=== PATIENT | female | born 1970 | race Caucasian/White ===

== ENCOUNTER → 2019-12-10 | Day surgery (SDC) | payer OTHER ==
[2019-12-03 15:06] LABS: BASOPHILS # (AUTO) 0.1 (0.0-0.1); BASOPHILS % 0.5 % (0.0-1.0); EOSINOPHILS # (AUTO) 0.1 (0.0-0.4); EOSINOPHILS % 1.2 % (0.0-6.0); HEMATOCRIT 42.3 % (34.2-44.1); HEMOGLOBIN 13.4 g/dL (12.0-16.0); LYMPHOCYTES # (AUTO) 2.8 (1.0-3.2); LYMPHOCYTES % 27.4 % (18.0-39.1); MEAN CORPUSCULAR HGB CONC 31.7 g/dL (31-35); MEAN CORPUSCULAR VOLUME 91.6 fL (81-99); MONOCYTES # (AUTO) 0.5 (0.2-0.8); MONOCYTES % 5.2 % (4.4-11.3); NEUTROPHILS # (AUTO) 6.7 (2.1-6.9); NEUTROPHILS % 65.4 % (38.7-80.0); PLATELET COUNT 387 x10e3/uL (140-360); RED BLOOD COUNT 4.62 x10e6/uL (3.6-5.1); RED CELL DISTRIBUTION WIDTH 12.3 % (11.7-14.4)
[2019-12-03 15:10] LABS: BILIRUBIN,URINE NEGATIVE (NEGATIVE); CLARITY,URINE SL CLOUDY (CLEAR); COLOR,URINE YELLOW (YELLOW); KETONES,URINE NEGATIVE (NEGATIVE); LEUKOCYTE ESTERASE ,URINE NEGATIVE (NEGATIVE); NITRITE,URINE NEGATIVE (NEGATIVE); PROTEIN,URINE DIPSTICK NEGATIVE (NEGATIVE); URINE UROBILINOGEN 0.2 mg/dL (0.2 - 1)
[2019-12-03 15:15] LABS: INR 0.89; PROTHROMBIN TIME 12.6 seconds (11.9-14.5)
[2019-12-03 15:16] LABS: PARTIAL THROMBOPLASTIN TIME 33.4 seconds (23.8-35.5)
[2019-12-03 15:21] LABS: ANION GAP 17.5 mmol/L (8-16); BLOOD UREA NITROGEN 15 mg/dL (7-26); BUN/CREATININE RATIO 20 (6-25); CALCIUM 10.3 mg/dL (8.4-10.2); CARBON DIOXIDE 19 mmol/L (22-29); CHLORIDE 108 mmol/L (98-107); CREATININE, SERUM 0.74 mg/dL (0.57-1.11); EST GLOMERULAR FILTRATION RATE > 60 ML/MIN (60-); GLUCOSE 81 mg/dL (74-118); POTASSIUM 3.5 mmol/L (3.5-5.1); SODIUM 141 mmol/L (136-145)
--- NOTE | 2019-12-04 11:12 | Diagnostic Imaging Report ---
EXAM: CHEST 2 VIEWS DATE: 12/04/2019 10:09 AM INDICATION: Preoperative evaluation for foot surgery COMPARISON: 05/15/2019 FINDINGS: The trachea is midline. The lungs are symmetrically expanded without evidence for large focal consolidation, pneumothorax, or significant pleural effusion. The cardiomediastinal silhouette and pulmonary vasculature are within normal limits. No acute osseous abnormality is identified. The surrounding soft tissues are unremarkable. IMPRESSION: No acute cardiopulmonary process identified. Signed by: Dr. Evangelist Hurst MD on 12/04/2019 11:09 AM
[~2019-12-10] MED LIST: ACETAMINOPHEN 1000 MG/100 ML 100 ML IV ONE; ACETAMINOPHEN 1000 MG/100 ML IV ONE; BACITRACIN 50,000 UNIT VIAL ONE; BUPIVACAINE HCL 0.5% INJ 30 ML VIAL INJ ONE; BUPIVACAINE LIPOSOME/PF 266 MG/20 ML IJ ONE; CEFAZOLIN SOD 1 GM/NS 50ML 100 ML IV ONE; DEXAMETHASONE SOD PHOS INJ 4 MG/ML VIAL ONE; FENTANYL CITRATE/PF 100MCG/2 ML INJ ONE; FYCOMPA PO; GLYCOPYRROLATE INJ 0.2 MG/ML VIAL ONE; HYDROMORPHONE 1MG/1ML INJ ONE; LIDOCAINE HCL 1% LOCAL INJ 20 ML VIAL ONE; LIDOCAINE HCL 2% JELLY 5 ML TUBE ONE; LIDOCAINE HCL 2% LOCAL INJ 5 ML SDV VIAL INJ ONE; LORAZEPAM1 MG PO; MUPIROCIN 2% OINT 22 GM TUBE ONE; NEOSTIGMINE 1 MG/ML 10ML VIAL ONE; ONDANSETRON HCL INJ 2MG/ML 2ML 2 MG/ML VIAL ONE; PRAVASTATIN SOD40 MG PO; PROPOFOL IV EMULSION 10 MG/ML 20 ML VIAL ONE; ROCURONIUM BROMIDE 10 MG/ML 5ML VIAL ONE; SERTRALINE HCL100 MG PO; SEVOFLURANE INHAL SOLN 250 ML PEN BTL ONE; TOPAMAX25 MG PO; TROKENDI PO
--- OUTSIDE RECORDS SUMMARY | 2019-12-10 11:47 | XMS REPORT | Summary of Care ---
Author Author [facility] - Health Organization [facility] - Health Address Unknown Phone Unavailable Care Team Providers Care Nonprofit Financial Controller Name Role Phone Candice Dunlap MD PCP Encounter Details Care Team Description Date Type Department Doctor Unassigned, [place] [address] [place] [id number] 11/14/2019 Orders Only [facility] [address] [place] [address] Allergies Comments Active Allergy Reactions Severity Noted Date Hydrocodone-Acetaminophen Hives 07/29/2019 documented as of this encounter (statuses as of 11/14/2019) Medications End Date Status Medication Sig Dispensed Refills Start Date Active SERTraline 100 mg tablet Take 100 mg 0 by mouth 9 daily. Active TROKENDI XR 100 mg Cp24 TK ONE C PO 3 QHS 9 Active LORazepam 1 mg tablet TK 1 T PO QD 0 9 Active Diclofenac Sodium Apply 1 Tube 2 (VOLTAREN) 1 % pea-sized 9 gelIndications: Referred amount of gel otalgia of both ears, TMJ to jaw joint crepitus area daily for pain. Active traMADol 50 mg tablet TAKE 1 TABLET 0 BY MOUTH 9 THREE TIMES A DAY NEEDED FOR PAIN documented as of this encounter (statuses as of 11/14/2019) Active Problems No known active problemsdocumented as of this encounter (statuses as of 11/14/2019) Immunizations Name Administration Dates Next Due Influenza Virus Vaccine 10/29/2019 Quad .5 mL IM 6+ MO documented as of this encounter Social History Date Tobacco Use Types Packs/Day Years Used Never Smoker Smokeless Tobacco: Never Used Drinks/Week oz/Week Comments Alcohol Use soc Yes Sex Assigned at Date Recorded Not on file Industry Job Start Date Occupation Not on file Not on file Not on file Travel End Travel History Travel Start No recent travel history available. documented as of this encounter Last Filed Vital Signs Not on filedocumented in this encounter Plan of Treatment Care Team Description Date Type Specialty Candice Dunlap MD [address] [place] [address] [place] [phone] [phone] 01/28/2020 Office Visit Family Medicine Health Maintenance Due Date Last Done Comments DTaP,Tdap,and Td Vaccines 1981 (1 - Tdap) PAP SMEAR 1991 Breast Cancer Screening 2010 (MAMMOGRAM) INFLUENZA VACCINE Completed 10/29/2019 PNEUMOCOCCAL 0-64 YEARS Aged Out No longer eligible based COMBINED SERIES on patient's age to complete this topic documented as of this encounter Procedures Comments Procedure Name Priority Date/Time Associated Diagnosis EXTERNAL PROVIDER RECORDS Routine 11/14/2019 12:01 AM PUMP OPERATOR documented in this encounter Results Not on filedocumented in this encounter Insurance Type Payer Benefit Subscriber ID Effective Phone Address Plan / Dates Group Medicaid [employer] [place] [place] xxxxxxxxx 2018-P PLAN - MANAGED MEDICAID STAR PLUS resent documented as of this encounter
--- OUTSIDE RECORDS SUMMARY | 2019-12-10 11:47 | XMS REPORT | Summary of Care ---
Author Author [facility] - Health Organization [facility] - Health Address Unknown Phone Unavailable Care Team Providers Care Finding Fastener Name Role Phone Candice Dunlap MD PCP Encounter Details Care Team Description Date Type Department Heather Baltazar, RN [address] [place] [id number] 11/04/2019 Patient Secure [facility] Pediatric[facility] & [facility] Adult Primary Care- [address] [phone] Allergies Comments Active Allergy Reactions Severity Noted Date Hydrocodone-Acetaminophen Hives 07/29/2019 documented as of this encounter (statuses as of 11/06/2019) Medications End Date Status Medication Sig Dispensed [...] as of this encounter (statuses as of 11/06/2019) Active Problems No known active problemsdocumented as of this encounter (statuses as of 11/06/2019) Immunizations Name Administration Dates Next Due Influenza [...] Date Type Specialty Candice Dunlap MD [address] [address] [place] [phone] 01/28/2020 Office Visit Family Medicine Health Maintenance Due Date Last Done Comments DTaP,Tdap,and Td Vaccines 1981 (1 - Tdap) PAP SMEAR 1991 Breast Cancer Screening 2010 (MAMMOGRAM) INFLUENZA VACCINE Completed 10/29/2019 PNEUMOCOCCAL 0-64 YEARS Aged Out No longer eligible based COMBINED SERIES on patient's age to complete this topic documented as of this encounter Results Not on filedocumented in this encounter Insurance Type Payer Benefit Subscriber ID Effective Phone Address Plan / Dates Group Medicaid [employer] [place] xxxxxxxxx 2018-P PLAN - MANAGED MEDICAID STAR PLUS resent documented as of this encounter
--- OUTSIDE RECORDS SUMMARY | 2019-12-10 11:47 | XMS REPORT | Summary of Care ---
Author Author [facility] - Health Organization [facility] - Health Address Unknown Phone Unavailable Care Team Providers Care Machine Shop Apprentice Name Role Phone Candice Dunlap MD PCP Reason for Visit * Reason Comments Enlarged Tonsils X 1 WEEKS. Sore Throat Encounter Details Care Team Description Date Type Department Aleksandr Padron MD [address] [phone] Pharyngotonsillitis (Primary Dx); Left foot pain 11/27/2019 Office Visit [facility] Pediatrics & Adult Primary Care- [address] [phone] Allergies Comments Active Allergy Reactions Severity Noted Date Hydrocodone-Acetaminophen Hives 07/29/2019 documented as of this encounter (statuses as of 11/27/2019) Medications End Date Status Medication Sig Dispensed [...] THREE TIMES A DAY NEEDED FOR PAIN 12/07/2019 Active amoxicillin 500 mg Take 2 40 capsule 0 capsuleIndications: capsules by 0 Pharyngotonsillitis mouth 2 (two) times daily for 10 days. documented as of this encounter (statuses as of 11/27/2019) Active Problems No known active problemsdocumented as of this encounter (statuses as of 11/27/2019) Immunizations Name Administration Dates Next Due Influenza [...] of this encounter Last Filed Vital Signs Reading Time Taken Comments Vital Sign 128/74 11/27/2019 11:35 AM MEMBERSHIP SECRETARY Blood Pressure 76 11/27/2019 11:35 AM MEMBERSHIP SECRETARY Pulse 36.2 C (97.2 F) 11/27/2019 11:35 AM MEMBERSHIP SECRETARY Temperature 18 11/27/2019 11:35 AM MEMBERSHIP SECRETARY Respiratory Rate - - Oxygen Saturation - - Inhaled Oxygen Concentration 88 kg (194 lb) 11/27/2019 11:35 AM MEMBERSHIP SECRETARY Weight - - Height 31.31 10/29/2019 10:10 AM MEMBERSHIP SECRETARY Body Mass Index documented in this encounter Patient Instructions * Patient Instructions* Aleksandr Padron MD - 11/27/2019 11:30 AM MEMBERSHIP SECRETARY Self-Care for Sore Throats Sore throats happen for many reasons, such as colds, allergies, cigarette smoke, air pollution, and infections caused by viruses or bacteria. In any case, your throat becomes red and sore. Your goal for self-care is to reduce your discomfor t while giving your throat a chance to heal. Moisten and soothe your throat Tips include the following: Try a sip of water first thing after waking up. Keep your throat moist by drinking6 or more glasses of clear liquids every day. Run a cool-air humidifier in your room overnight. Stay away from cigarette smoke. Check the air quality index,if air pollution gives you a sore throat. On high pollution days, try to limit outdoor time. Suck on throat lozenges, cough drops, hard candy, ice chips, or frozen fruit- juice bars. Use the sugar-free versions if your diet or medical condition requir es them. Gargle to ease irritation Gargling every hour or2 can ease irritation. Try gargling with1 of these dione utions: 1/4teaspoon of salt in1/2 cup of warm water An boei-ygw-hdhhgod anesthetic gargle Use medicine for more relief Vvyy-mgy-oxvygas medicine can reduce sore throat symptoms. Ask your pharmacist i f you have questions about which medicine to use. To prevent possible medicine i nteractions, let the pharmacist know what medicines you take. To decrease sympto ms: Ease pain with anesthetic sprays. Aspirin or an aspirin substitute also helps . Remember, never give aspirin to anyone 18 or younger. Don't take aspirin if yo u are alreadytaking blood thinners. For sore throats caused by allergies, try antihistamines to block the allergi c reaction. Unless a sore throat is caused by a bacterial infection, antibiotics wont hel p you. Prevent future sore throats Prevention tips include: Stop smoking or reduce contact with secondhand smoke. Smoke irritates the ten nadira throat lining. Limit contact with pets and with allergy-causing substances, such as pollen a nd mold. Wash your hands often when youre around someone with a sore throat or cold . This will keep viruses or bacteria from spreading. Limit outdoor time when air pollution is bad. Dont strain your vocal cords. When to call your healthcare provider Contact your healthcare provider if you have: Fever of 100.4F (38.0C) or higher, or as directed by your healthcare prov ider White spots on the throat Great Trouble swallowing A skin rash Recent exposure to someone else with strep bacteria Severe hoarseness and swollen glands in the neck or jaw Call 911 Call 911 if any of the following occur: Trouble breathing or catching your breath Drooling and problems swallowing Wheezing Unable to talk Feeling dizzy or faint Feeling of doom [employer] last reviewed this educational content on 05/22/201619990478-0618 [address] [employer]. [address] [place] [address] 583 7. All rights reserved. This information is not intended as a substitute for pro fessional medical care. Always follow your healthcare professional's instruction s. ERSHIP SECRETARY documented in this encounter Progress Notes * Aleksandr Padron MD - 11/27/2019 11:30 AM MEMBERSHIP SECRETARY Cc: Chief Complaint Patient presents with Enlarged Tonsils X 1 WEEKS. Sore Throat Staci Mcknight is a 49 year old female. Sore Throat Location: Posterior Quality: Sore Severity: Severe Onset quality: Gradual Duration: 1 week Timing: Constant Progression: Worsening Chronicity: New Relieved by: OTC medications Worsened by: Swallowing Associated symptoms: adenopathy, chills, fever and trouble swallowing Associated symptoms: no cough, no postnasal drip and no rhinorrhea Fever: Temp source: Subjective Allergies Staci is allergic to lortab [hydrocodone-acetaminophen]. Medications Outpatient Medications Prior to Visit Medication Sig Dispense Refill traMADol 50 mg tablet TAKE 1 TABLET BY MOUTH THREE TIMES A DAY NEEDED FOR PAIN 0 Diclofenac Sodium (VOLTAREN) 1 % gel Apply pea-sized amount of gel to jaw cheo int area daily for pain. 1 Tube 2 LORazepam 1 mg tablet TK 1 T PO QD 0 SERTraline 100 mg tablet Take 100 mg by mouth daily. TROKENDI XR 100 mg Cp24 TK ONE C PO QHS 3 No facility-administered medications prior to visit. Histories Past Medical History: Diagnosis Date Anxiety Hypertension Seizures Dr Tong ([place]) neurologist suspecting panic attacks? Vitamin D deficiency Past Surgical History: Procedure Laterality Date APPENDECTOMY BONE SPUR EXCISION Right 1991 HYSTERECTOMY Social History Socioeconomic History Marital status: Spouse name: Not on file Number of children: Not on file Years of education: Not on file Highest education level: Not on file Occupational History Not on file Social Needs Financial resource strain: Not on file Food insecurity: Worry: Not on file Inability: Not on file Transportation needs: Medical: Not on file Non-medical: Not on file Tobacco Use Smoking status: Never Smoker Smokeless tobacco: Never Used Substance and Sexual Activity Alcohol use: Yes Comment: soc Drug use: Never Sexual activity: Yes Lifestyle Physical activity: Days per week: Not on file Minutes per session: Not on file Stress: Not on file Relationships Social connections: Talks on phone: Not on file Gets together: Not on file Attends protestant service: Not on file Active member of club or organization: Not on file Attends meetings of clubs or organizations: Not on file Relationship status: Not on file Intimate partner violence: Fear of current or ex partner: Not on file Emotionally abused: Not on file Physically abused: Not on file Forced sexual activity: Not on file Other Topics Concern Not on file Social History Narrative Not on file Family History Problem Relation Age of Onset Other - see comments Mother Other - see comments Father Review of Systems Constitutional: Positive for chills and fever. HENT: Positive for trouble swallowing. Negative for postnasal drip and rhinorrhe a. Respiratory: Negative for cough. Hematological: Positive for adenopathy. Review of Systems (bold is positive) CONSTITUTIONAL:- diaphoresis,weight change,change in appetite,fatigue RESPIRATORY:- cough, chest tightness, shortness of breath, wheezing. CVS:- chest pain, dyspnea on exertion, palpitations, leg swelling, Syncope,PND GASTROINTESTINAL:- abdominal distention, abdominal pain, blood in stool, constip ation, nausea ,vomiting. GENITOURINARY:- dysuria, urgency, polyuria, frequency, hematuria, flank pain. MUSCULOSKELETAL:- arthralgias, joint swelling, myalgias, neck stiffness. SKIN:- color change, rash and wound. NEUROLOGIC:- seizures, syncope, weakness, light-headedness,dizziness numbness,h eadaches. PSYCHIATRY:- agitation, confusion,hallucinations,nervous/anxious,depression HEMATOLOGIC: adenopathy, bruise/bleed easily. ENDOCRINE:- cold intolerance, polydipsia and polyuria Vital Signs BP 128/74 (BP Location: Left arm, Patient Position: Sitting, BP CUFF SIZE: Adult Large) | Pulse 76 | Temp 36.2 C (97.2 F) (Temporal Artery) | Resp 18 | Wt 194 lb (88 kg) | BMI 31.31 kg/m Physical Exam CONSTITUTIONAL: oriented to person, place, and time. well-developed well-nourish ed. No distress. NOSE-Nasal mucosa/turbinates -normal EAR -External ear normal , Normal canal,TM not bulgy or erythem MOUTH/THROAT:- Oropharynx -enlarged tonsils with mild erythema EYES:- PERRLA,EOMI,normal Conjunctivae ,no discharge NECK:- Neck supple. No JVD present. No thyromegaly present. CVS:- Regular rhythm, normal heart sounds, intact distal pulses, No M/G/R PULMONARY:- Effort normal and breath sounds normal. No stridor. No respiratory d istress. no Wheezes,rales or rhonchi GI :- Soft. Bowel sounds are normal. no distension ,mass or tenderness. no rebo und and no guarding. MUSCULOSKELETAL:- Normal range of motion,no edema, Back- no tenderness or deform ity. LYMPHADENOPATHY:-1+ cervical lympadenopathy Assessment/Plan 1. Pharyngotonsillitis -Hydration, tylenol/motrin for pain and fever, rtc prn -Salt water gurgles for sore throat -Try otc anti-histamine -Nasal spray or irrigation for nasal congestion -Treat empirically, to have foot surgery shortly - amoxicillin 500 mg capsule; Take 2 capsules by mouth 2 (two) times daily for 1 0 days. Dispense: 40 capsule; Refill: 0 2. Left foot pain ERSHIP SECRETARY documented in this encounter Plan of Treatment Care Team Description Date Type Specialty Candice Dunlap MD [address] [phone] 01/28/2020 Office Visit Family Medicine Health Maintenance Due Date Last Done Comments PAP SMEAR 1991 Breast Cancer Screening 2010 (MAMMOGRAM) DTaP,Tdap,and Td Vaccines 11/27/2020 Postponed from 1981 (1 - Tdap) (Alternative Guidelines) INFLUENZA VACCINE Completed 10/29/2019 PNEUMOCOCCAL 0-64 YEARS Aged Out No longer eligible based COMBINED SERIES on patient's age to complete this topic documented as of this encounter Results Not on filedocumented in this encounter Visit Diagnoses Diagnosis Pharyngotonsillitis - Primary Acute upper respiratory infections of other multiple sites Left foot pain Pain in limb documented in this encounter Insurance Type Payer Benefit Subscriber ID Effective Phone Address Plan / Dates Group Medicaid [employer] COMM UHC [place] xxxxxxxxx 2018-P PLAN - MANAGED MEDICAID STAR PLUS resent documented as of this encounter"
--- OUTSIDE RECORDS SUMMARY | 2019-12-10 11:47 | XMS REPORT ---
Author Author [facility] Address Unknown Phone Unavailable Care Team Providers Care Bakery Products Checker Name Role Phone Nani SANTIAGO Unavailable Unavailable Problems This patient has no known problems. Allergies, Adverse Reactions, Alerts This patient has no known allergies or adverse reactions. Medications This patient has no known medications. Results Test Description Test Time Test Comments Text Results Atomic Results Result Comments CHEST 2 VIEWS 2019-12-04 11:08:00 [place] [id number] Patient Name: TRINO MUNOZ MR #: [id number] : 1970 Age/Sex: 49/F Req #: [id number] Adm Physician: Ordered by: GRETCHEN SANTIAGO DPM Report #: [id number] Location: OR Room/Bed: Procedure: [id number] DX/CHEST 2 VIEWS Exam Date: 12/04/19 Exam Time: 1000 REPORT STATUS: Signed EXAM: CHEST 2 VIEWS DATE: 12/04/2019 10:09 AM IN DICATION: Preoperative evaluation for foot surgery COMPARISON: 05/15/2019 FINDINGS: The trachea is midline. The lungs are symmetrically expanded without evidence for large focal consolidation, pneumothorax, or significant pleural effusion. The cardiomediastinal silhouette and pulmonary vasculature are within normal limits. No acute osseous abnormality is identified. The surrounding soft tissues are unremarkable. IMPRESSION: No acute cardiopulmonary process identified. Signed by: Dr. Evangelist Hurst MD on 12/04/2019 11:09 AM Dictated By: EVANGELIST HURST MD E lectronically Signed By: EVANGELIST HURST MD on 12/04/191108 Transcribed By: COLLINS on 12/04/191108 COPY TO: GRETCHEN SANTIAGO DPM CHEST 2 VIEWS 2019-05-15 14:44:00 [place] [id number] Patient Name: TRINO MUNOZ MR #: [id number] : 1970 Age/Sex: 49/F Req #: [id number] Adm Physician: Ordered by: GRETCHEN SANTIAGO DPM Report #: [id number] Location: OR Room/Bed: Procedure: [id number] DX/CHEST 2 VIEWS Exam Date: 05/15/19 Exam Time: 1310 REPORT STATUS: Signed Chest, 2 views, 05/15/2019. History: Preop, left foot surgery. Comparison: None available. Findings: The cardiomediastinal silhouette and pulmonary vasculature are within normal limits. The lungs are clear without evidence of consolidation or pleural effusion. There are no acute osseous or soft tissue abnormalities. Impression: No acute cardiopulmonary abnormality. Signed by: Enrique Blue on 05/15/2019 2:44 PM Dictated By: ENRIQUE BLUE MD [id number] Transcribed By: COLLINS on 05/15/19 144 COPY TO: GRETCHEN SANTIAGO DPM
--- OUTSIDE RECORDS SUMMARY | 2019-12-10 11:47 | XMS REPORT | Summary of Care ---
Author Author [facility] - Health Organization [facility] - Health Address Unknown Phone Unavailable Care Team Providers Care Area Operations Manager Name Role Phone Candice Dunlap MD PCP Reason for Visit * Reason Comments Enlarged Tonsils X 1 WEEKS. Sore Throat Encounter Details Care Team Description Date Type Department Aleksandr Padron MD [address] [phone] Pharyngotonsillitis (Primary Dx); Left foot pain 11/27/2019 Office Visit [facility] Pediatrics & Adult Primary Care- [address] [phone] Allergies Comments Active Allergy Reactions Severity Noted [...] Comments Vital Sign 128/74 11/27/2019 11:35 AM NECKTIE CENTRALIZING MACHINE OPERATOR Blood Pressure 76 11/27/2019 11:35 AM NECKTIE CENTRALIZING MACHINE OPERATOR Pulse 36.2 C (97.2 F) 11/27/2019 11:35 AM NECKTIE CENTRALIZING MACHINE OPERATOR Temperature 18 11/27/2019 11:35 AM NECKTIE CENTRALIZING MACHINE OPERATOR Respiratory Rate - - Oxygen Saturation - - Inhaled Oxygen Concentration 88 kg (194 lb) 11/27/2019 11:35 AM NECKTIE CENTRALIZING MACHINE OPERATOR Weight - - Height 31.31 10/29/2019 10:10 AM NECKTIE CENTRALIZING MACHINE OPERATOR Body Mass Index documented in this encounter Patient Instructions * Patient Instructions* Aleksandr Padron MD - 11/27/2019 11:30 AM NECKTIE CENTRALIZING MACHINE OPERATOR Self-Care for Sore Throats Sore throats happen [...] salt in1/2 cup of warm water An wpre-hdy-htleklp anesthetic gargle Use medicine for more relief Mvzk-vgt-ipwgumh medicine can reduce sore throat symptoms. Ask [...] Feeling dizzy or faint Feeling of doom [employer] last reviewed this educational content on 05/22/201619999290-1953 The [employer]. [address] [place] [address] 005 7. All rights reserved. This information is not intended as a substitute for pro fessional medical care. Always follow your healthcare professional's instruction s. TIE CENTRALIZING MACHINE OPERATOR documented in this encounter Progress Notes * Aleksandr Padron MD - 11/27/2019 11:30 AM NECKTIE CENTRALIZING MACHINE OPERATOR Cc: Chief Complaint Patient presents with Enlarged [...] Diagnosis Date Anxiety Hypertension Seizures Dr Tong ([place]) neurologist suspecting panic attacks? Vitamin D deficiency [...] file Gets together: Not on file Attends uatsdin service: Not on file Active member of [...] capsule; Refill: 0 2. Left foot pain TIE CENTRALIZING MACHINE OPERATOR documented in this encounter Plan of Treatment Care Team Description Date Type Specialty Candice Dunlap MD [address] [phone] 01/28/2020 Office Visit Family Medicine Health Maintenance [...]
[2019-12-10 18:10] VITALS: BP 133/90
--- NOTE | 2019-12-10 23:53 | Operative Report ---
DATE OF PROCEDURE: 12/10/2019 SURGEON: Rodri Duff DPM [employer] TIN CANS: None. PREOPERATIVE DIAGNOSES: 1. Achilles tendonitis, left foot. 2. Retrocalcaneal heel spur, left heel. 3. Possible achilles tendon tear, left foot. POSTOPERATIVE DIAGNOSES: 1. Achilles tendonitis, left foot. 2. Retrocalcaneal heel spur, left heel. 3. There is no achilles tendon tear noted. PROCEDURES: 1. Retrocalcaneal heel spur resection, left foot. 2. Repair or achilles tendon with SpeedBridge anchors, left foot. 3. Posterior splint application to the left foot. ANESTHESIA: General with a total of 30 mL of 1:1 mixture 1% lidocaine plain and 0.5% Marcaine plain preoperatively, and intraoperatively 37 mL of 1:1 mixture of 0.5% Marcaine plain and 20 mL of Exparel. ESTIMATED BLOOD LOSS: None. COMPLICATIONS: None. GRAFTS AND IMPLANTS: SpeedBridge anchor. INDICATIONS FOR THE PROCEDURE: The patient is a very pleasant 49-year-old female, who has had pain to the posterior aspect of the left heel for quite some time several months to years, and patient was found to have a spur on the posterior aspect, which was causing the patient extreme pain. After exhausting all conservative treatments, this warranted surgical intervention at this time. Therefore, all the risks and complications of the surgery were explained to the patient including infection, pain, swelling numbness, bleeding, delayed healing, nonhealing, limping leg, neuritis, stiffness, and possible need for further surgery. At this time, there was no guarantees implied or given. Therefore, the above stated procedure was performed. NARRATIVE OF PROCEDURE: Preoperatively, the patient was identified as Staci Mcknight. The left foot was marked. She was taken to the OR and placed on the OR table and underwent a successful general anesthetic on the [facility] and then was placed on the operating table in a prone position being careful to protect all body parts. After appropriate placement, the patient also had a left thigh tourniquet applied and had good positioning, placement and protection of all body parts was noted. The patient was injected with a total of 30 mL of 1:1 mixture of 1% lidocaine plain and 0.5% Marcaine plain. The left foot and leg was then prepped and draped in the usual sterile manner. At this time, the mini C-arm was utilized to take a picture of the left heel and one can see this posterior spurring noted on the posterior aspect of the left heel. After the left foot was elevated and Esmarch was utilized to exsanguinate the blood and the tourniquet was now inflated to 350 mmHg. Attention was now directed to the posterior aspect of the left heel, where a dorsal linear incision was made midline through the achilles tendon. Utilizing 15-blade, incision was now deepened down to level of the subcutaneous tissue, being careful to identify and retract all vital neurovascular structures and to cauterize all vessels as needed. At this time, one can see the achilles tendon and examined, but there was no tear in the achilles tendon that was noted. A midline incision was made through the achilles tendon and the tendon was now reflected both medially and laterally, reflected off the calcaneal bone. There was spurring that was noted on the posterior calcaneus more prominent. Actually that one can see on the x-ray, and at this time, utilizing an oscillating bone saw, the bone spur was now resected and was passed off the operative field. The bone was now smoothed to smooth contour utilizing a reciprocating rasp. After assuring that the entire area was nice and smooth, then we used a mini C-arm to evaluate at this time. The spurring that was noted previously is no longer present and then, calcaneus was noted to be nice and smooth. At this point, the wound was then irrigated with copious amounts of normal saline after complete irrigation. Then, I proceeded with repairing the achilles tendon utilizing the SpeedBridge technique. At this time, with the SpeedBridge placement, the achilles tendon was lying very nicely and with good adherence to the bone. The area was then irrigated with copious amounts of normal saline, and then, after complete irrigation, I then reapproximated the incision of the achilles tendon midline utilizing 2-0 Vicryl in a running stitch. At this point, again, the wound was irrigated with copious amounts of normal saline and again then mini C-arm was utilized to evaluate at this time. The calcaneal spurring had been resected and it appears to be very good, and once the achilles tendon was attached, the tendon was gliding on a very nice position with good adherence to the bone. Again, there was no tearing of the achilles tendon noted previously, but before the incision. The wound was then irrigated with copious amounts of normal saline and for subcutaneous closure, 2-0 Vicryl was utilized in simple interrupted stitch and for skin closure 3-0 nylon was utilized in a suspension stitch. I then proceeded with blocking her with a total of 37 mL with 20 mL of Exparel and 17 mL of 0.5% Marcaine plain. I then applied a dry sterile compressive dressing to the left heel and tourniquet was released and capillary refill time was noted to all digits of 1 through 5 of the left foot. I then proceeded with placing the patient in a posterior splint application. The patient had tolerated the procedure, left the OR to the recovery room vital signs stable and the vascular status back to previous condition. She will be nonweightbearing. She will follow up with me in my office on Sunday. JOELLE Sanders/WALT /[id number]
== END | disposition home or self-care (01) ==
LOC: OR 11:40
PROVIDERS: ATTEND Podiatrist
DX: M76.62 Achilles tendinitis, left leg (principal); M77.32 Calcaneal spur, left foot; F41.0 Panic disorder [episodic paroxysmal anxiety]; N80.9 Endometriosis, unspecified; I10 Essential (primary) hypertension; R56.9 Unspecified convulsions; Z88.6 Allergy status to analgesic agent; Z88.8 Allergy status to other drugs, medicaments and biological substances; Z01.810 Encounter for preprocedural cardiovascular examination; Z01.812 Encounter for preprocedural laboratory examination; Z01.818 Encounter for other preprocedural examination; Z68.33 Body mass index [BMI] 33.0-33.9, adult
CPT/HCPCS: 28118; 28200; 36415; 71046; 80048; 81003; 84702; 85025; 85610; 85730; 93005; C9290; J0131; J0690; J1100; J1170; J2001 ×3; J2405; J2704; J2710; J3010; C1713

== ENCOUNTER → 2020-03-10 | Outpatient (CLI) | payer OTHER ==
[~2020-03-10] MED LIST changes: -ACETAMINOPHEN 1000 MG/100 ML 100 ML IV ONE; -ACETAMINOPHEN 1000 MG/100 ML IV ONE; -BACITRACIN 50,000 UNIT VIAL ONE; -BUPIVACAINE HCL 0.5% INJ 30 ML VIAL INJ ONE; -BUPIVACAINE LIPOSOME/PF 266 MG/20 ML IJ ONE; -CEFAZOLIN SOD 1 GM/NS 50ML 100 ML IV ONE; -DEXAMETHASONE SOD PHOS INJ 4 MG/ML VIAL ONE; -FENTANYL CITRATE/PF 100MCG/2 ML INJ ONE; -GLYCOPYRROLATE INJ 0.2 MG/ML VIAL ONE; -HYDROMORPHONE 1MG/1ML INJ ONE; -LIDOCAINE HCL 1% LOCAL INJ 20 ML VIAL ONE; -LIDOCAINE HCL 2% JELLY 5 ML TUBE ONE; -LIDOCAINE HCL 2% LOCAL INJ 5 ML SDV VIAL INJ ONE; +LORAZEPAM INJ 2 MG/ML VIAL ONE; -MUPIROCIN 2% OINT 22 GM TUBE ONE; -NEOSTIGMINE 1 MG/ML 10ML VIAL ONE; -ONDANSETRON HCL INJ 2MG/ML 2ML 2 MG/ML VIAL ONE; -PROPOFOL IV EMULSION 10 MG/ML 20 ML VIAL ONE; -ROCURONIUM BROMIDE 10 MG/ML 5ML VIAL ONE; -SEVOFLURANE INHAL SOLN 250 ML PEN BTL ONE
--- NOTE | 2020-03-10 15:27 | Diagnostic Imaging Report ---
MRI of the left ankle without contrast. History: Pain. Achilles tendon injury. Prior surgery Technique: Utilizing a high-field 1.5T magnet, the following sequences were acquired: PD FS in all 3 planes with additional axial PD. Comparison: None. Findings: Achilles tendon and plantar fascia: Postsurgical change at the Achilles tendon insertion site on the posterior calcaneus with associated metallic artifacts, bone marrow edema and soft tissue edema. The distal Achilles tendon is thickened and degenerated with intrasubstance partial tearing. The majority of the fibers are intact. The plantar fascial tissues are intact. Cartilage and bone: Negative for osteochondral lesion of the tibiotalar and subtalar joints. Negative for fracture, osteonecrosis, or dislocation Medial ankle: The deltoid ligament complex is intact. The medial flexor tendons are normal. There is a physiologic amount of fluid within the tendon sheath of FHL. Lateral ankle: The anterior talofibular, calcaneofibular, and posterior talofibular ligaments are intact. The syndesmotic ligaments are intact. The peroneal tendons are normal. Anterior ankle: The anterior extensor tendons are normal. Other findings: Small tibiotalar joint effusion and mild synovitis. Impression: Postsurgical change at the Achilles tendon insertion site on the posterior calcaneus with associated metallic artifacts, bone marrow edema and soft tissue edema. The distal Achilles tendon is thickened and degenerated with intrasubstance partial tearing. The majority of the fibers are intact. Signed by: Dr. Raul Thompson M.D. on 03/10/2020 3:24 PM
--- NOTE | 2020-03-11 10:13 | NUR ---
attempted to make post procedure call. no answer. left message instructing pt if any problems or concerns to call her md
== END ==
LOC: MRI 12:49
PROVIDERS: ATTEND Podiatrist
DX: S90.02XA Contusion of left ankle, initial encounter (principal); Z48.89 Encounter for other specified surgical aftercare; M76.62 Achilles tendinitis, left leg; M72.2 Plantar fascial fibromatosis; M79.672 Pain in left foot
CPT/HCPCS: 73721; J2060